=== PATIENT | male | born 1960 | race African-American/Black ===

== ENCOUNTER 2016-06-28 08:44 | Emergency (ER) | payer OTHER, MEDICAID ==
[~2016-06-28] VITALS: Ht 180.3 cm; Wt 117.5 kg
[2016-06-28 08:50] VITALS: Ht 180.3 cm; Wt 117.5 kg
[2016-06-28] MEDS ORDERED: NICARDipine HCL 30 MG CAPSULE PO ONE (09:30)
--- NOTE | 2016-06-28 14:28 | ERD ---
ER Documentation Chief Complaint Date/Time DATE: 06/28/16 TIME: 14:25 Chief Complaint Concerned aout his elevated blood pressure HPI Patient is a 55-year-old male with hypertension who presents with hypertension and headache. The patient said that he had blurry vision as well. His symptoms started yesterday. He has right-sided cervical spine pain as well. He has not been taking his blood pressure medicines as directed. He does not currently have a primary doctor. ROS All systems reviewed and are negative except as per history of present illness. Allergies Allergies: Coded Allergies: No Known Allergy (Unverified , 06/28/16) PMhx/Soc Medical and Surgical Hx: pt denies Medical Hx, pt denies Surgical Hx Hx Alcohol Use: No Hx Substance Use: No Hx Tobacco Use: No FmHx Positive for hypertension Physical Exam Vitals Vital Signs Date Time Temp Pulse Resp B/P Pulse Ox O2 Delivery O2 Flow Rate FiO2 06/28/16 08:50 98.3 80 20 189/106 99 Physical Exam Const: No acute distress Head: Atraumatic Eyes: Normal Conjunctiva ENT: Normal External Ears, Nose and Mouth. Neck: Full range of motion..~ No meningismus. Resp: Clear to auscultation bilaterally Cardio: Regular rate and rhythm, no murmurs Abd: Soft, non tender, non distended. Normal bowel sounds Skin: No petechiae or rashes Back: No midline or flank tenderness Ext: No cyanosis, or edema Neur: Awake and alert, cranial nerves II through XII are intact, strength is 5 out of 5 in all 4 extremities, gait is normal, no slurred speech Psych: Normal Mood and Affect Results 24 hrs Current Medications Medications (Trade) Dose Ordered Sig/Shannan Route PRN Reason Start Time Stop Time Status Last Admin Dose Admin Nicardipine HCl (Cardene) 30 mg ONCE ONCE PO 06/28/16 09:30 06/28/16 09:31 DC 06/28/16 09:21 Procedures/MDM EKG read by me: Rate/Rhythm: Regular rate and rhythm at a normal rate Intervals: Normal Impression: No evidence of ischemia or arrhythmia Patient is a 55-year-old male with hypertension who presents with acute hypertension. At this point I doubt stroke or acute coronary syndrome. I believe outpatient management is appropriate. The patient was given Cardene by mouth. He will need to take his blood pressure medicines as directed. He will need to follow-up with the local clinics as he does not currently have a primary doctor. The patient can return for any worsening symptoms. Departure Diagnosis: Primary Impression: Hypertension Hypertension type: essential hypertension Qualified Code: I10 - Essential hypertension Condition: Fair Patient Instructions: High Blood Pressure (Hypertension) Referrals: COMMUNITY CLINICS YOU HAVE RECEIVED A MEDICAL SCREENING EXAM AND THE RESULTS INDICATE THAT YOU DO NOT HAVE A CONDITION THAT REQUIRES URGENT TREATMENT IN THE EMERGENCY DEPARTMENT. FURTHER EVALUATION AND TREATMENT OF YOUR CONDITION CAN WAIT UNTIL YOU ARE SEEN IN YOUR DOCTORS OFFICE WITHIN THE NEXT 1-2 DAYS. IT IS YOUR RESPONSIBILITY TO MAKE AN APPOINTMENT FOR FOLOW-UP CARE. IF YOU HAVE A PRIMARY DOCTOR --you should call your primary doctor and schedule an appointment IF YOU DO NOT HAVE A PRIMARY DOCTOR YOU CAN CALL OUR PHYSICIAN REFERRAL HOTLINE AT IF YOU CAN NOT AFFORD TO SEE A PHYSICIAN YOU CAN CHOSE FROM THE FOLLOWING [facility] [address] [facility]. [facility] [address] [address] [facility] [facility] [address] [facility]. [facility] [address] [facility]. [facility]. [address] Additional Instructions: Call your primary care doctor TOMORROW for an appointment during the next 1-2 days.See the doctor sooner or return here if your condition worsens before your appointment time. RENE BLANDON MD Jun 28, 2016 14:28
== END 2016-06-28 09:54 | disposition home or self-care (01) ==
LOC: E/R 08:44
DX: I10 Essential (primary) hypertension (principal)
CPT/HCPCS: 93005

== ENCOUNTER 2016-11-30 09:53 | Emergency (ER) | payer MEDICAID, OTHER ==
[~2016-11-30] VITALS: Ht 180.3 cm; Wt 111.2 kg
[2016-11-30 09:54] VITALS: Ht 180.3 cm; Wt 111.2 kg
--- NOTE | 2016-11-30 10:12 | ERD ---
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 Patient reports that he has radial pain that is diffuse and achy, worse with extension and better with flexion. He has not tried anything for pain so far. He denies weakness or paresthesias. ROS All systems reviewed and are negative except as per history of present illness. Medications Home Meds Active Scripts Naproxen* (Naprosyn*) 500 Mg Tablet, 500 MG PO BID Y for PAIN AND/OR INFLAMMATION, #30 TAB Prov:PATEL MANJARREZ PA-C 11/30/16 Allergies Allergies: Coded Allergies: No Known Allergy (Unverified , 11/30/16) PMhx/Soc Hx Alcohol Use: No Hx Substance Use: No Hx Tobacco Use: No Physical Exam Vitals Vital Signs Date Time Temp Pulse Resp B/P Pulse Ox O2 Delivery O2 Flow Rate FiO2 11/30/16 09:54 98.1 99 16 187/122 97 Physical Exam General: Well-developed, well-nourished. The patient appears in no acute distress. HEENT: Head is normocephalic, atraumatic. No scleral icterus. Neck: Supple. Nontender. Lungs: Clear to auscultation. Normal air movement. Heart: Regular rate and rhythm. S1 and S2 are normal. No murmurs, gallops, or rubs. Abdomen: Nondistended. Extremities: Swelling and tenderness over the right radial head, patient is able to flex his elbow with minimal pain, and pain is reproducible with extension, there is no crepitus. Radial, ulnar, median nerve intact radial pulse 2+ bilaterally. Shoulder and wrist exam is unremarkable Neurologic: Alert and oriented 3. No focal deficits. Normal speech and gait. Skin: Normal turgor. No rash or lesions. Results 24 hrs Current Medications Medications (Trade) Dose Ordered Sig/Shannan Route PRN Reason Start Time Stop Time Status Last Admin Dose Admin Ibuprofen (Motrin) 600 mg ONCE ONCE PO 11/30/16 10:30 11/30/16 10:31 DC 11/30/16 10:25 DIAGNOSTIC IMAGING REPORT Patient: CORINNA LIVINGSTON : 1960 Age: 56 Sex: M MR #: [id number] DOS: 11/30/16 1007 Ordering MD: PATEL MANJARREZ PA-C Location: [facility] Room/Bed: PROCEDURE: XR Elbow. CLINICAL INDICATION: Pain from twisting motion TECHNIQUE: Three views of the right elbow are available for review COMPARISON: None available FINDINGS: There is no acute osseous or articular abnormality. No evidence for fracture. The radiocapitellar and ulnohumeral articular surfaces are preserved. Enthesopathic changes are present at the triceps insertion. There is mild swelling over the olecranon. No evidence for joint effusion or soft tissue calcifications. IMPRESSION: 1. No acute osseous abnormality. 2. Mild soft tissue swelling over the olecranon, also noting enthesopathic changes at the triceps insertion. RPTAT: PP .Marek Rocha MD, MD Date Time Electronically viewed and signed by .Marek Rocha MD, MD on 11/30/2016 11:09 .d/ CC: PATEL MANJARREZ PA-C Procedures/MDM ED course: He was given ibuprofen 600 mg, and his right elbow was placed in a sling. Medical decision making: This is a 56-year-old male, who presents with a twisting motion injury of the right elbow, normal x-rays today. There is an enthesopathy of the olecranon. No fractures or dislocations, likely presents with a muscle strain. Patient was placed in a sling, will advise to recheck with orthopedics if no improvement in a week. Departure Diagnosis: Primary Impression: Elbow injury Condition: Good PATEL MANJARREZ PA-C Nov 30, 2016 10:11
[2016-11-30] MEDS ORDERED: IBUPROFEN 600 MG TAB PO ONE (10:30)
--- NOTE | 2016-11-30 11:09 | RADRPT ---
PROCEDURE: XR Elbow. CLINICAL INDICATION: Pain from twisting motion TECHNIQUE: Three views of the right elbow are available for review COMPARISON: None available FINDINGS: There is no acute osseous or articular abnormality. No evidence for fracture. The radiocapitellar and ulnohumeral articular surfaces are preserved. Enthesopathic changes are present at the triceps i nsertion. There is mild swelling over the olecranon. No evidence for joint effusion or soft tissu e calcifications. IMPRESSION: 1. No acute osseous abnormality. 2. Mild soft tissue swelling over the olecranon, also noting enthesopathic changes at the triceps i nsertion. RPTAT: PP .Marek Rocha MD, MD Date Time Electronically viewed and signed by .Marek Rocha MD, on 11/30/2016 11:09 .d/
[2016-11-30] MEDS ORDERED: NAPR-260 PO (11:31)
== END 2016-11-30 12:00 | disposition home or self-care (01) ==
LOC: FTE 09:53
DX: S59.901A Unspecified injury of right elbow, initial encounter (principal); X58.XXXA Exposure to other specified factors, initial encounter; Y92.9 Unspecified place or not applicable